=== PATIENT | female | born 1945 | race Caucasian/White ===

== ENCOUNTER 2016-04-24 11:29 | Emergency (ER) | payer MEDICARE, OTHER ==
--- NOTE | ~2016-04-24 | ER ---
PATIENT'S NAME: BERT GOME[facility] AGE: 70 Y [address] ROOM: [place] [id number] LOCATION: [facility] ADMIT DATE: 04/24/2016 ER/Outpatient Report DISCHARGE DATE: 04/24/2016 FAMILY PHYSICIAN: Pascual Villareal MD ATTENDING PHYSICIAN: Familia Bowman TIME OF ARRIVAL: 1129 hours. TIME SEEN: 1203 hours. IDENTIFICATION: A 70-year-old female with headache, blurred vision, and left-side face numbness. HISTORY OF PRESENT ILLNESS: The patient said that her left eye she has had an intermittent "steady stabbing pain." This has been going on for the last 1 week. She was diagnosed with tension headaches and treated with cyclobenzaprine 5 mg. She went back and saw Dr. Villareal and he prescribed her Imitrex yesterday. She took 2 last night, 1 at 5 p.m. and 1 at 7 p.m. It made her legs kind of tingle and she did not like how it made her feel. She also has left neck pain started 3 weeks ago "felt like I slept wrong." She had a previous breast cancer, status post lumpectomy, and has subsequent lymphedema in her left arm since 1993. She has chronic neck pain. She has seen physical therapy. She thought that that made her neck pain worse. She said the muscle relaxer prescribed Tylenol and gave her some help with sleep, but not real pain relief. No weight loss. She has had a 3-4 pounds weight gain over the winter with an activity. Normally, she tries to walk 10,000 steps at goal with her Fitbit, but she has not had that here over the winter. FAMILY HISTORY: Mother with breast cancer, lymphoma, and CVA, maternal grandmother with cervical cancer, paternal grandmother with strokes, and father with CVA and blood clots. ALLERGIES: PENICILLIN AND MELOXICAM. SHE BEEN TOLD NOT TO TAKE ALEVE OR IBUPROFEN. CURRENT MEDICATIONS: 1. Flexeril 5 mg at h.s. 2. Imitrex p.r.n. 3. Tylenol. 4. Pravastatin. PATIENT'S NAME: [facility] AGE: 70 Y [address] ROOM: [place], [place] [address] LOCATION: ED ADMIT DATE: 04/24/2016 ER/Outpatient Report DISCHARGE DATE: 04/24/2016 FAMILY PHYSICIAN: Pascual Villareal MD ATTENDING PHYSICIAN: Familia Bowman 5. Aspirin. 6. Prolia injection 1 week ago . 7. Melatonin. 8. Multivitamin. 9. Calcium plus vitamin D. 10. Estrace vaginal cream. 11. Colon support probiotics. MEDICAL PROBLEMS: Osteoporosis, migraine headaches as a teenager, history of breast cancer in 1993, status post lumpectomy and lymph nodes were removed in the left and she has some subsequent lymphedema. SOCIAL HISTORY: The patient lives in [place]. She is retired. Tobacco use, denies. Alcohol use, rare. Drug use, denies. She is . REVIEW OF SYSTEMS: All systems reviewed and negative other than what is noted in the HPI. PHYSICAL EXAMINATION: VITAL SIGNS: Height 5 feet, 5-1/2 inches, weight 59.3 kg. Blood pressure 179/104, pulse 92, respirations 16, temperature 97.6, and sats 95%. HEENT: Head: Normocephalic, atraumatic. Ears: TMs translucent both ears. Eyes: Pupils equal and reactive to light and accommodation. Extraocular movements intact. Nose: Mucosa pink. No lesions. Mouth: No lesions. Pharynx benign. NECK: Supple. No lymphadenopathy. LUNGS: Clear to auscultation. Breath sounds are equal. HEART: Regular rate and rhythm. No murmur, rub, or gallop. ABDOMEN: Bowel sounds present. Soft, nondistended, nontender. SKIN: [place], warm, and dry. No lesions or rashes noted. NEURO: The patient is alert and oriented x4. Cranial nerves 2 through 12 grossly intact. Motor strength 5/5 throughout. Sensation is intact to light touch. EXTREMITIES: No lower extremity edema. LABORATORY DATA: She said labs and head CT have not been done in the clinic. We did check lab work hemoglobin 15.9, hematocrit 47.4, platelets 304, white count 6.7, normal differential. INR 1.0. Sodium 138, potassium 4.0, chloride 102, CO2 27, BUN 15, creatinine 0.8, and blood sugar 114. Liver enzymes normal. CRP less than 0.29. Sed rate 15. Head CT without contrast and cervical spine CT were obtained. Head CT, no acute process per Radiology. Cervical spine CT, advanced degenerative disk collapse with moderate spondylosis at C4-5, C5-6, PATIENT'S NAME: BERT GOMEZ [facility] AGE: 70 Y [address] ROOM: [place] [id number] LOCATION: [facility] ADMIT DATE: 04/24/2016 ER/Outpatient Report DISCHARGE DATE: 04/24/2016 FAMILY PHYSICIAN: Pascual Villareal MD ATTENDING PHYSICIAN: Familia Bowman and C6-7. Moderate bilateral foraminal stenosis at C6-7, C5-6, and on the right at C4-5. IMPRESSION: 1. Headaches and muscle tension. 2. Degenerative changes of her cervical spine. PLAN: Continue Tylenol that does seem to be giving her relief, she can use the Flexeril as needed at night. Ice or heat or both and follow up with Dr. Villareal next week and follow up sooner if any problems or concerns. The patient understands and agrees and all questions have been answered. FAMILIA BOWMAN MD CAR/modl /[id number] d: 04/24/16 2312 t: 05/08/16 0701, OUTPATIENT REPORT
[2016-04-24 12:40] LABS: BASOPHIL # 0.1 K/uL (0.0-0.2); BASOPHIL % 0.9 %; EOSINOPHIL % 0.3 %; HEMATOCRIT 47.4 % (33.0-46.0); HEMOGLOBIN 15.9 g/dL (10.0-15.0); IMMATURE GRANULOCYTE % 0.3 %; LYMPHOCYTE % 15.5 %; MCH 32.8 pg (27.0-34.0); MCHC 33.5 gm/dL (32.0-36.5); MCV 97.7 fl (83.0-98.0); MONOCYTE # 0.4 K/uL (0.0-1.0); MONOCYTE % 6.2 %; MPV 9.1 fl (9.4-12.4); NEUTROPHIL # (ANC) 5.1 K/uL (1.8-7.8); NEUTROPHIL % 76.8 %; NRBC % 0 /100WBC (0-0.00); PLATELET COUNT 304 K/uL (150-450); RBC 4.85 M/uL (3.50-5.50); RDW-CV 13.1 % (11.9-14.6); WBC 6.7 K/uL (4.0-11.0)
[2016-04-24 12:49] LABS: PTT 28 SECONDS (25-32)
[2016-04-24 12:58] LABS: ALBUMIN 4.5 gm/dL (3.5-5.0); ALK PHOS 87 IU/L (33-138); ALT 23 IU/L (12-78); AST 21 IU/L (10-40); BLOOD UREA NITROGEN 15 mg/dL (6-24); CALCIUM 9.2 mg/dL (8.5-10.5); CHLORIDE 102 mMol/L (96-110); CO2 27 mMol/L (22-32); CREATININE 0.8 mg/dL (0.5-1.1); ESTIMATED GFR (MDRD EQUATION) > 60; SODIUM 138 mMol/L (135-145); TOTAL BILIRUBIN 0.5 mg/dL (0.0-1.5); TOTAL PROTEIN 8.5 g/dL (6.0-8.4)
== END 2016-04-24 14:08 | disposition disaster alternative care site (69) ==
LOC: GMED 11:29
PROVIDERS: Family Medicine
DX: G44.209 Tension-type headache, unspecified, not intractable (principal); M47.812 Spondylosis without myelopathy or radiculopathy, cervical region; Z98.890 Other specified postprocedural states; Z85.3 Personal history of malignant neoplasm of breast; Z88.0 Allergy status to penicillin; Z88.8 Allergy status to other drugs, medicaments and biological substances; Z79.899 Other long term (current) drug therapy; Z79.82 Long term (current) use of aspirin